=== PATIENT | female | born 1960 | race Caucasian/White ===

== ENCOUNTER 2022-04-12 09:02 | Inpatient (IN) | payer MEDICARE, OTHER ==
[2022-04-12] MEDS ORDERED: VANCOMYCIN 1 GM in D5W (PRE-DOCKED) 1,000 MG/250 ML IVPB ONE (09:49)
[2022-04-12] MEDS ORDERED: PIPERACILLIN/TAZOB 4.5 GM 4.5 GM in DEXTROSE 5%-WATER 100 ML IVPB ONE (09:49)
[2022-04-12] MEDS ORDERED: ACETAMINOPHEN 1000 MG/100 ML BAG IVPB ONE (10:20)
[2022-04-12] MEDS ORDERED: VANCOMYCIN/WATER FOR INJ (PEG) 1,000 MG/200 ML BAG IVPB ONE (10:22)
[2022-04-12] MEDS ORDERED: PIPERACILLIN/TAZOB 4.5 GM 4.5 GM/100 ML BAG IVPB ONE (10:22)
[2022-04-12] MEDS ORDERED: ACETAMINOPHEN INJECTION 100 ML IVPB ONE (10:56)
[2022-04-12 11:33] LABS: BASO % 0.3 % (0-2.0); EOS % 1.5 % (0-4.5); HEMATOCRIT 42.8 % (32.4-45.2); HEMOGLOBIN 14.3 GM/dL (10.7-15.3); LYMPH % 30.1 % (8-40); MCH 30.8 pg (25.7-33.7); MCHC 33.3 g/dl (32.0-36.0); MEAN CELL VOLUME 92.2 fl (80-96); MEAN PLT VOLUME 8.3 fl (7.5-11.1); MONO % 4.8 % (3.8-10.2); NEUT % 63.3 % (42.8-82.8); PLATELET COUNT 253 10^3/uL (134-434); RBC 4.64 M/mm3 (3.60-5.2); RDW 13.7 % (11.6-15.6); WHITE BLOOD COUNT 7.3 K/mm3 (4.0-10.0)
[2022-04-12 11:41] LABS: INR 0.94 (0.83-1.09); PROTHROMBIN TIME (PATIENT) 10.8 SEC (9.7-13.0)
[2022-04-12 11:43] LABS: ACTIVATED PTT 29.7 SECONDS (25.2-36.5)
[2022-04-12 11:54] LABS: ALBUMIN 3.5 g/dl (3.4-5.0); BLOOD UREA NITROGEN 14.9 mg/dL (7-18); MAGNESIUM 2.3 mg/dL (1.8-2.4)
[2022-04-12 11:57] LABS: CREATININE 0.5 mg/dL (0.55-1.3)
[2022-04-12 12:02] LABS: BILIRUBIN,TOTAL 0.2 mg/dL (0.2-1)
[2022-04-12] MEDS ORDERED: ACETAMINOPHEN 1000 MG/100 ML BAG IVPB PRN ×2 (14:10→17:36)
[2022-04-12] MEDS ORDERED: KETOROLAC TROMETHAMINE 15 MG/ML VIAL IVPUSH PRN (14:52)
[2022-04-12 15:48] VITALS: BMI 21.4
[2022-04-12] MEDS: PIPERACILLIN/TAZOB 3.375 GM 3.375 GM in DEXTROSE 5%-WATER - 50 ML IVPB SCH ×2 (16:14→21:57)
[2022-04-12] MEDS ORDERED: FLU VACC QS2022-23(6MOS UP)/PF 60 MCG/0.5 ML SYRINGE IM ONE (22:00)
[2022-04-12] MEDS ORDERED: PNEUMOC 20-VAL CONJ-DIP CRM/PF 0.5 ML SYRINGE IM ONE (22:00)
[2022-04-13] MEDS: PIPERACILLIN/TAZOB 3.375 GM 3.375 GM in DEXTROSE 5%-WATER - 50 ML IVPB SCH ×5 (03:02→17:10)
[2022-04-13 09:39] LABS: HEMATOCRIT 41.8 % (32.4-45.2); HEMOGLOBIN 13.5 GM/dL (10.7-15.3); MCH 29.9 pg (25.7-33.7); MCHC 32.4 g/dl (32.0-36.0); MEAN CELL VOLUME 92.1 fl (80-96); MEAN PLT VOLUME 8.5 fl (7.5-11.1); PLATELET COUNT 244 10^3/uL (134-434); RBC 4.53 M/mm3 (3.60-5.2); RDW 14.1 % (11.6-15.6); WHITE BLOOD COUNT 6.4 K/mm3 (4.0-10.0)
[2022-04-13] MEDS ORDERED: VANCOMYCIN 1 GM/200 ML PREMIX BAG (RESTRICTED TO ID ONLY) IVPB SCH (10:00)
[2022-04-13] MEDS: ENOXAPARIN NA (PORCINE) 40 MG/0.4 ML DISP.SYRIN SQ SCH (10:32)
[2022-04-13] MEDS: VANCOMYCIN 1 GM/200 ML PREMIX BAG (RESTRICTED TO ID ONLY) IVPB SCH ×3 (10:40→15:57)
[2022-04-13 10:45] LABS: CALCIUM 8.7 mg/dL (8.5-10.1)
[2022-04-13 10:47] LABS: BLOOD UREA NITROGEN 16.4 mg/dL (7-18); MAGNESIUM 2.2 mg/dL (1.8-2.4)
[2022-04-13 10:50] LABS: CREATININE 0.6 mg/dL (0.55-1.3); PHOSPHOROUS 3.2 mg/dL (2.5-4.9)
[2022-04-13] MEDS: KETOROLAC TROMETHAMINE 15 MG/ML VIAL IVPUSH PRN ×2 (15:13→23:40)
[2022-04-13] MEDS: LOSARTAN POTASSIUM 50 MG TABLET PO SCH (18:30)
[2022-04-14] MEDS: PIPERACILLIN/TAZOB 3.375 GM 3.375 GM in DEXTROSE 5%-WATER - 50 ML IVPB SCH ×3 (01:24→18:03)
[2022-04-14] MEDS ORDERED: PNEUMOC 20-VAL CONJ-DIP CRM/PF 0.5 ML SYRINGE IM ONE (07:44)
[2022-04-14] MEDS: LOSARTAN POTASSIUM 50 MG TABLET PO SCH (10:06)
[2022-04-14] MEDS: ENOXAPARIN NA (PORCINE) 40 MG/0.4 ML DISP.SYRIN SQ SCH (10:11)
[2022-04-14] MEDS: BACITRACIN 15 GM TUBE TOPICAL OINTMENT TP SCH (14:58)
[2022-04-14] MEDS: amLODIPine BESYLATE 5 MG TABLET (FP) PO SCH (14:58)
[2022-04-15] MEDS: PIPERACILLIN/TAZOB 3.375 GM 3.375 GM in DEXTROSE 5%-WATER - 50 ML IVPB SCH ×3 (01:52→17:37)
[2022-04-15] MEDS: LOSARTAN POTASSIUM 50 MG TABLET PO SCH (10:17)
[2022-04-15] MEDS: amLODIPine BESYLATE 5 MG TABLET (FP) PO SCH (10:18)
[2022-04-15] MEDS: ENOXAPARIN NA (PORCINE) 40 MG/0.4 ML DISP.SYRIN SQ SCH (10:22)
[2022-04-15] MEDS: BACITRACIN 15 GM TUBE TOPICAL OINTMENT TP SCH (14:01)
[2022-04-15] MEDS ORDERED: amLODIPine BESYLATE 5 MG TABLET (FP) PO ONE (14:55)
[2022-04-15] MEDS: metoPROLOL SUCCINATE 25 MG TAB.SR.24H (FP) PO SCH (15:18)
[2022-04-16] MEDS: PIPERACILLIN/TAZOB 3.375 GM 3.375 GM in DEXTROSE 5%-WATER - 50 ML IVPB SCH ×3 (01:43→19:42)
[2022-04-16] MEDS: metoPROLOL SUCCINATE 25 MG TAB.SR.24H (FP) PO SCH (09:51)
[2022-04-16] MEDS: ENOXAPARIN NA (PORCINE) 40 MG/0.4 ML DISP.SYRIN SQ SCH (09:51)
[2022-04-16] MEDS: amLODIPine BESYLATE 10 MG TABLET (FP) PO SCH (09:51)
[2022-04-16] MEDS: LOSARTAN POTASSIUM 50 MG TABLET PO SCH (09:51)
[2022-04-16] MEDS: BACITRACIN 15 GM TUBE TOPICAL OINTMENT TP SCH (09:53)
[2022-04-16 10:08] LABS: MCH 29.7 pg (25.7-33.7); MCHC 31.7 g/dl (32.0-36.0); MEAN CELL VOLUME 93.4 fl (80-96); MEAN PLT VOLUME 8.5 fl (7.5-11.1); PLATELET COUNT 246 10^3/uL (134-434); RBC 4.71 M/mm3 (3.60-5.2); RDW 14.4 % (11.6-15.6)
[2022-04-16 10:27] LABS: BLOOD UREA NITROGEN 18.1 mg/dL (7-18); MAGNESIUM 2.3 mg/dL (1.8-2.4)
[2022-04-16 10:30] LABS: CREATININE 0.5 mg/dL (0.55-1.3)
[2022-04-16 10:31] LABS: PHOSPHOROUS 3.5 mg/dL (2.5-4.9)
[2022-04-17] MEDS: PIPERACILLIN/TAZOB 3.375 GM 3.375 GM in DEXTROSE 5%-WATER - 50 ML IVPB SCH ×3 (01:36→18:08)
[2022-04-17] MEDS: metoPROLOL SUCCINATE 25 MG TAB.SR.24H (FP) PO SCH (10:13)
[2022-04-17] MEDS: LOSARTAN POTASSIUM 50 MG TABLET PO SCH (10:13)
[2022-04-17] MEDS: amLODIPine BESYLATE 10 MG TABLET (FP) PO SCH (10:13)
[2022-04-17] MEDS: ENOXAPARIN NA (PORCINE) 40 MG/0.4 ML DISP.SYRIN SQ SCH (10:14)
[2022-04-17] MEDS: BACITRACIN 15 GM TUBE TOPICAL OINTMENT TP SCH (10:15)
[2022-04-17 11:08] LABS: BASO % 0.8 % (0-2.0); EOS % 3.3 % (0-4.5); HEMATOCRIT 42.8 % (32.4-45.2); HEMOGLOBIN 14.1 GM/dL (10.7-15.3); LYMPH % 32.2 % (8-40); MCH 30.6 pg (25.7-33.7); MEAN CELL VOLUME 92.9 fl (80-96); MEAN PLT VOLUME 8.5 fl (7.5-11.1); MONO % 5.4 % (3.8-10.2); NEUT % 58.3 % (42.8-82.8); PLATELET COUNT 230 10^3/uL (134-434); RBC 4.61 M/mm3 (3.60-5.2); RDW 14.1 % (11.6-15.6); WHITE BLOOD COUNT 4.8 K/mm3 (4.0-10.0)
[2022-04-17 11:13] LABS: INR 1.02 (0.83-1.09); PROTHROMBIN TIME (PATIENT) 11.7 SEC (9.7-13.0)
[2022-04-17 11:16] LABS: ACTIVATED PTT 28.7 SECONDS (25.2-36.5)
[2022-04-17 11:29] LABS: ALBUMIN 3.3 g/dl (3.4-5.0); CALCIUM 8.9 mg/dL (8.5-10.1)
[2022-04-17 11:30] LABS: BLOOD UREA NITROGEN 19.4 mg/dL (7-18); MAGNESIUM 2.2 mg/dL (1.8-2.4)
[2022-04-17 11:33] LABS: CREATININE 0.6 mg/dL (0.55-1.3); PHOSPHOROUS 3.3 mg/dL (2.5-4.9)
[2022-04-17 11:34] LABS: BILIRUBIN,TOTAL 0.4 mg/dL (0.2-1); TOT PROT 6.7 g/dl (6.4-8.2)
[2022-04-17] MEDS: NICOTINE 21 MG/24 HOURS TOPICAL PATCH TD SCH (15:47)
[2022-04-18] MEDS: PIPERACILLIN/TAZOB 3.375 GM 3.375 GM in DEXTROSE 5%-WATER - 50 ML IVPB SCH ×3 (01:30→17:32)
[2022-04-18] MEDS: ACETAMINOPHEN 500 MG TABLET (FP) PO PRN ×2 (02:15→13:56)
[2022-04-18] MEDS: ENOXAPARIN NA (PORCINE) 40 MG/0.4 ML DISP.SYRIN SQ SCH (09:35)
[2022-04-18] MEDS: metoPROLOL SUCCINATE 25 MG TAB.SR.24H (FP) PO SCH (09:36)
[2022-04-18] MEDS: NICOTINE 21 MG/24 HOURS TOPICAL PATCH TD SCH (09:36)
[2022-04-18] MEDS: LOSARTAN POTASSIUM 50 MG TABLET PO SCH (09:36)
[2022-04-18] MEDS: amLODIPine BESYLATE 10 MG TABLET (FP) PO SCH (09:36)
[2022-04-18 10:19] LABS: BASO % 0.6 % (0-2.0); EOS % 3.3 % (0-4.5); HEMATOCRIT 43.4 % (32.4-45.2); LYMPH % 41.7 % (8-40); MCHC 32.3 g/dl (32.0-36.0); MEAN CELL VOLUME 92.9 fl (80-96); MEAN PLT VOLUME 8.5 fl (7.5-11.1); MONO % 5.1 % (3.8-10.2); NEUT % 49.3 % (42.8-82.8); PLATELET COUNT 266 10^3/uL (134-434); RBC 4.67 M/mm3 (3.60-5.2); WHITE BLOOD COUNT 3.9 K/mm3 (4.0-10.0)
[2022-04-18 11:25] LABS: ALBUMIN 3.3 g/dl (3.4-5.0); BLOOD UREA NITROGEN 15.6 mg/dL (7-18); CALCIUM 9.1 mg/dL (8.5-10.1); MAGNESIUM 2.3 mg/dL (1.8-2.4)
[2022-04-18 11:28] LABS: CREATININE 0.6 mg/dL (0.55-1.3); PHOSPHOROUS 3.6 mg/dL (2.5-4.9)
[2022-04-18 11:30] LABS: BILIRUBIN,TOTAL 0.4 mg/dL (0.2-1); TOT PROT 6.8 g/dl (6.4-8.2)
[2022-04-18] MEDS: BACITRACIN 15 GM TUBE TOPICAL OINTMENT TP SCH (11:45)
[2022-04-19] MEDS: PIPERACILLIN/TAZOB 3.375 GM 3.375 GM in DEXTROSE 5%-WATER - 50 ML IVPB SCH ×3 (02:08→18:20)
[2022-04-19] MEDS ORDERED: LIDOCAINE HCL 1%, 10 MG/ML (20ML VIAL) ONE (07:35)
[2022-04-19] MEDS ORDERED: HEPARIN NA (PORCINE) 5,000 UNITS/ML 1ML VIAL ONE ×3 (07:35→15:40)
[2022-04-19] MEDS: amLODIPine BESYLATE 10 MG TABLET (FP) PO SCH (09:55)
[2022-04-19] MEDS: LOSARTAN POTASSIUM 50 MG TABLET PO SCH (09:55)
[2022-04-19] MEDS: NICOTINE 21 MG/24 HOURS TOPICAL PATCH TD SCH (09:55)
[2022-04-19] MEDS: BACITRACIN 15 GM TUBE TOPICAL OINTMENT TP SCH (09:55)
[2022-04-19] MEDS: metoPROLOL SUCCINATE 25 MG TAB.SR.24H (FP) PO SCH (09:55)
[2022-04-19 11:05] LABS: HEMATOCRIT 42.7 % (32.4-45.2); HEMOGLOBIN 14.2 GM/dL (10.7-15.3); MCH 30.7 pg (25.7-33.7); MCHC 33.2 g/dl (32.0-36.0); MEAN CELL VOLUME 92.5 fl (80-96); MEAN PLT VOLUME 8.5 fl (7.5-11.1); PLATELET COUNT 222 10^3/uL (134-434); RBC 4.62 M/mm3 (3.60-5.2); WHITE BLOOD COUNT 5.2 K/mm3 (4.0-10.0)
[2022-04-19 11:08] LABS: INR 0.98 (0.83-1.09); PROTHROMBIN TIME (PATIENT) 11.3 SEC (9.7-13.0)
[2022-04-19 11:11] LABS: ACTIVATED PTT 29.8 SECONDS (25.2-36.5)
[2022-04-19 11:45] LABS: ALBUMIN 3.4 g/dl (3.4-5.0)
[2022-04-19 11:46] LABS: BLOOD UREA NITROGEN 17.1 mg/dL (7-18); MAGNESIUM 2.5 mg/dL (1.8-2.4)
[2022-04-19 11:48] LABS: CREATININE 0.5 mg/dL (0.55-1.3)
[2022-04-19 11:49] LABS: PHOSPHOROUS 3.3 mg/dL (2.5-4.9)
[2022-04-19 11:51] LABS: BILIRUBIN,TOTAL 0.4 mg/dL (0.2-1); TOT PROT 6.8 g/dl (6.4-8.2)
[2022-04-19 11:56] LABS: ANISOCYTOSIS 1+; MACROCYTOSIS 0
[2022-04-19] MEDS ORDERED: DEXMEDETOMIDINE HCL 200 MCG/2 ML IVPB ONE (14:52)
[2022-04-19] MEDS ORDERED: HEPARIN NA (PORCINE) 5,000 UNITS/ML 1ML VIAL SQ ONE (15:00)
[2022-04-19] MEDS ORDERED: PROPOFOL 20 ML ONE ×2 (15:08→15:42)
[2022-04-19] MEDS ORDERED: MIDAZOLAM HCL 2 MG/2 ML SINGLE DOSE VIAL ONE (15:15)
[2022-04-19] MEDS ORDERED: LACTATED RINGERS SOLUTION 1,000 ML IV SCH ×2 (15:15→16:28)
[2022-04-19] MEDS ORDERED: LIDOCAINE HCL 1%, 10 MG/ML (20ML VIAL) INF ONE ×2 (15:23)
[2022-04-19] MEDS ORDERED: ACETAMINOPHEN 500 MG TABLET (FP) PO PRN (16:28)
[2022-04-19] MEDS ORDERED: CLOPIDOGREL BISULFATE 75 MG TABLET (FP) ONE (16:58)
[2022-04-19] MEDS: CLOPIDOGREL BISULFATE 75 MG TABLET (FP) PO SCH (17:00)
[2022-04-20] MEDS: PIPERACILLIN/TAZOB 3.375 GM 3.375 GM in DEXTROSE 5%-WATER - 50 ML IVPB SCH ×3 (01:33→17:54)
[2022-04-20] MEDS ORDERED: SODIUM CHLORIDE 1,000 ML IV STA (09:53)
[2022-04-20] MEDS ORDERED: ENOXAPARIN NA (PORCINE) 40 MG/0.4 ML DISP.SYRIN SQ SCH (10:00)
[2022-04-20] MEDS ORDERED: amLODIPine BESYLATE 10 MG TABLET (FP) PO SCH (10:00)
[2022-04-20] MEDS ORDERED: LOSARTAN POTASSIUM 50 MG TABLET PO SCH (10:00)
[2022-04-20] MEDS ORDERED: metoPROLOL SUCCINATE 25 MG TAB.SR.24H (FP) PO SCH (10:00)
[2022-04-20] MEDS ORDERED: BACITRACIN 15 GM TUBE TOPICAL OINTMENT TP SCH (10:00)
[2022-04-20] MEDS ORDERED: NICOTINE 21 MG/24 HOURS TOPICAL PATCH TD SCH (10:00)
[2022-04-20] MEDS: CLOPIDOGREL BISULFATE 75 MG TABLET (FP) PO SCH (10:14)
[2022-04-20 10:33] LABS: BASO % 0.4 % (0-2.0); EOS % 1.8 % (0-4.5); HEMATOCRIT 40.4 % (32.4-45.2); HEMOGLOBIN 13.3 GM/dL (10.7-15.3); LYMPH % 33.4 % (8-40); MCH 30.1 pg (25.7-33.7); MCHC 32.8 g/dl (32.0-36.0); MEAN CELL VOLUME 91.7 fl (80-96); MEAN PLT VOLUME 8.4 fl (7.5-11.1); MONO % 6.3 % (3.8-10.2); NEUT % 58.1 % (42.8-82.8); PLATELET COUNT 283 10^3/uL (134-434); RDW 13.8 % (11.6-15.6); WHITE BLOOD COUNT 6.7 K/mm3 (4.0-10.0)
[2022-04-20 10:39] LABS: INR 1.01 (0.83-1.09); PROTHROMBIN TIME (PATIENT) 11.6 SEC (9.7-13.0)
[2022-04-20 10:55] LABS: BLOOD UREA NITROGEN 20.7 mg/dL (7-18); CALCIUM 8.9 mg/dL (8.5-10.1); MAGNESIUM 2.5 mg/dL (1.8-2.4)
[2022-04-20 10:57] LABS: ALBUMIN 3.2 g/dl (3.4-5.0); BLOOD UREA NITROGEN 20.3 mg/dL (7-18)
[2022-04-20 10:58] LABS: CREATININE 0.8 mg/dL (0.55-1.3); PHOSPHOROUS 3.9 mg/dL (2.5-4.9)
[2022-04-20 10:59] LABS: CREATININE 0.9 mg/dL (0.55-1.3)
[2022-04-20 11:01] LABS: TOT PROT 6.4 g/dl (6.4-8.2)
[2022-04-20 11:02] LABS: BILIRUBIN,TOTAL 0.3 mg/dL (0.2-1)
[2022-04-20] MEDS: LACTATED RINGERS SOLUTION 1,000 ML/1,000 ML INFUS.BAG IV SCH (14:06)
[2022-04-20 17:30] LABS: HEMATOCRIT 35.4 % (32.4-45.2); MCH 31.1 pg (25.7-33.7); MCHC 33.9 g/dl (32.0-36.0); MEAN CELL VOLUME 91.7 fl (80-96); MEAN PLT VOLUME 8.4 fl (7.5-11.1); PLATELET COUNT 206 10^3/uL (134-434); RBC 3.86 M/mm3 (3.60-5.2); RDW 13.4 % (11.6-15.6); WHITE BLOOD COUNT 7.3 K/mm3 (4.0-10.0)
[2022-04-21] MEDS: PIPERACILLIN/TAZOB 3.375 GM 3.375 GM in DEXTROSE 5%-WATER - 50 ML IVPB SCH ×3 (01:20→17:18)
[2022-04-21] MEDS: ACETAMINOPHEN 500 MG TABLET (FP) PO PRN ×2 (09:10→22:00)
[2022-04-21] MEDS: BACITRACIN 15 GM TUBE TOPICAL OINTMENT TP SCH (09:17)
[2022-04-21] MEDS: NICOTINE 21 MG/24 HOURS TOPICAL PATCH TD SCH (09:17)
[2022-04-21 10:27] LABS: BASO % 0.4 % (0-2.0); EOS % 2.6 % (0-4.5); HEMATOCRIT 33.5 % (32.4-45.2); HEMOGLOBIN 10.9 GM/dL (10.7-15.3); LYMPH % 32.3 % (8-40); MCH 30.1 pg (25.7-33.7); MCHC 32.7 g/dl (32.0-36.0); MEAN CELL VOLUME 92.2 fl (80-96); MEAN PLT VOLUME 8.5 fl (7.5-11.1); MONO % 6.5 % (3.8-10.2); NEUT % 58.2 % (42.8-82.8); PLATELET COUNT 197 10^3/uL (134-434); RBC 3.63 M/mm3 (3.60-5.2); RDW 13.8 % (11.6-15.6); WHITE BLOOD COUNT 6.4 K/mm3 (4.0-10.0)
[2022-04-21 10:38] LABS: CALCIUM 8.5 mg/dL (8.5-10.1)
[2022-04-21 10:39] LABS: ALBUMIN 2.9 g/dl (3.4-5.0); BLOOD UREA NITROGEN 16.9 mg/dL (7-18); MAGNESIUM 1.9 mg/dL (1.8-2.4)
[2022-04-21 10:42] LABS: PHOSPHOROUS 3.1 mg/dL (2.5-4.9)
[2022-04-21 10:43] LABS: CREATININE 0.5 mg/dL (0.55-1.3)
[2022-04-21 10:44] LABS: BILIRUBIN,TOTAL 0.4 mg/dL (0.2-1)
[2022-04-21] MEDS: LACTATED RINGERS SOLUTION 1,000 ML/1,000 ML INFUS.BAG IV SCH (12:14)
[2022-04-21 19:39] LABS: HEMATOCRIT 33.1 % (32.4-45.2); HEMOGLOBIN 10.8 GM/dL (10.7-15.3); MCH 30.4 pg (25.7-33.7); MCHC 32.5 g/dl (32.0-36.0); MEAN CELL VOLUME 93.4 fl (80-96); MEAN PLT VOLUME 8.7 fl (7.5-11.1); PLATELET COUNT 206 10^3/uL (134-434); RBC 3.54 M/mm3 (3.60-5.2); RDW 13.9 % (11.6-15.6); WHITE BLOOD COUNT 6.6 K/mm3 (4.0-10.0)
[2022-04-22] MEDS: PIPERACILLIN/TAZOB 3.375 GM 3.375 GM in DEXTROSE 5%-WATER - 50 ML IVPB SCH ×3 (01:41→18:28)
[2022-04-22] MEDS: LACTATED RINGERS SOLUTION 1,000 ML/1,000 ML INFUS.BAG IV SCH ×2 (06:50→09:27)
[2022-04-22 09:08] LABS: BASO % 0.5 % (0-2.0); EOS % 2.9 % (0-4.5); HEMATOCRIT 34.3 % (32.4-45.2); HEMOGLOBIN 11.2 GM/dL (10.7-15.3); LYMPH % 34.3 % (8-40); MCH 30.3 pg (25.7-33.7); MCHC 32.8 g/dl (32.0-36.0); MEAN CELL VOLUME 92.6 fl (80-96); MEAN PLT VOLUME 8.6 fl (7.5-11.1); MONO % 6.9 % (3.8-10.2); NEUT % 55.4 % (42.8-82.8); PLATELET COUNT 214 10^3/uL (134-434); RBC 3.71 M/mm3 (3.60-5.2); RDW 13.7 % (11.6-15.6); WHITE BLOOD COUNT 5.4 K/mm3 (4.0-10.0)
[2022-04-22 09:26] LABS: ALBUMIN 3.1 g/dl (3.4-5.0); BLOOD UREA NITROGEN 12.6 mg/dL (7-18)
[2022-04-22 09:27] LABS: CALCIUM 8.4 mg/dL (8.5-10.1)
[2022-04-22 09:29] LABS: CREATININE 0.5 mg/dL (0.55-1.3)
[2022-04-22 09:30] LABS: TOT PROT 6.3 g/dl (6.4-8.2)
[2022-04-22] MEDS: BACITRACIN 15 GM TUBE TOPICAL OINTMENT TP SCH (09:30)
[2022-04-22] MEDS: NICOTINE 21 MG/24 HOURS TOPICAL PATCH TD SCH (09:30)
[2022-04-22 09:31] LABS: BILIRUBIN,TOTAL 0.4 mg/dL (0.2-1)
[2022-04-22] MEDS: ACETAMINOPHEN 500 MG TABLET (FP) PO PRN (22:36)
[2022-04-23] MEDS: PIPERACILLIN/TAZOB 3.375 GM 3.375 GM in DEXTROSE 5%-WATER - 50 ML IVPB SCH ×3 (01:36→17:30)
[2022-04-23] MEDS: LACTATED RINGERS SOLUTION 1,000 ML/1,000 ML INFUS.BAG IV SCH ×2 (01:36→09:00)
[2022-04-23 08:57] LABS: BASO % 0.3 % (0-2.0); HEMOGLOBIN 11.2 GM/dL (10.7-15.3); LYMPH % 13.3 % (8-40); MCH 30.4 pg (25.7-33.7); MEAN CELL VOLUME 92.4 fl (80-96); MEAN PLT VOLUME 8.6 fl (7.5-11.1); MONO % 3.5 % (3.8-10.2); NEUT % 80.9 % (42.8-82.8); PLATELET COUNT 207 10^3/uL (134-434); RBC 3.68 M/mm3 (3.60-5.2); RDW 13.9 % (11.6-15.6); WHITE BLOOD COUNT 4.1 K/mm3 (4.0-10.0)
[2022-04-23 09:02] LABS: INR 1.05 (0.83-1.09); PROTHROMBIN TIME (PATIENT) 12.1 SEC (9.7-13.0)
[2022-04-23 09:22] LABS: CALCIUM 8.8 mg/dL (8.5-10.1)
[2022-04-23] MEDS: ACETAMINOPHEN 500 MG TABLET (FP) PO PRN ×2 (09:24→14:26)
[2022-04-23 09:26] LABS: CREATININE 0.5 mg/dL (0.55-1.3)
[2022-04-23] MEDS: NICOTINE 21 MG/24 HOURS TOPICAL PATCH TD SCH (09:39)
[2022-04-23] MEDS: BACITRACIN 15 GM TUBE TOPICAL OINTMENT TP SCH (09:45)
[2022-04-23] MEDS: metoPROLOL SUCCINATE 25 MG TAB.SR.24H (FP) PO SCH (09:45)
[2022-04-23] MEDS: LOSARTAN POTASSIUM 25 MG TABLET PO SCH (09:45)
[2022-04-23 15:44] LABS: EPI CELLS 6 /uL (0-25.1); HYALINE CASTS 0 /uL (0-3.1); PH,URINE 7.5 (5.0-8.0); URINE APPEARANCE CLEAR; URINE BACTERIA 3 /uL (0-1359); URINE BILIRUBIN NEGATIVE (NEGATIVE); URINE COLOR YELLOW; URINE GLUCOSE (UA) NEGATIVE (NEGATIVE); URINE KETONE NEGATIVE (NEGATIVE); URINE LEUK ESTERASE NEGATIVE (NEGATIVE); URINE NITRITE NEGATIVE (NEGATIVE); URINE PROTEIN NEGATIVE (NEGATIVE); URINE RBC 37 /uL (0-23.9); URINE WBC 2 /uL (0-25.8)
[2022-04-23] MEDS ORDERED: ENOXAPARIN NA (PORCINE) 40 MG/0.4 ML DISP.SYRIN SQ SCH (18:15)
[2022-04-23] MEDS ORDERED: REMDESIVIR 200 MG in SODIUM CHLORIDE 250 ML IVPB ONE (18:30)
[2022-04-23] MEDS: ACETAMINOPHEN 1000 MG/100 ML BAG IVPB PRN (20:08)
[2022-04-24] MEDS: PIPERACILLIN/TAZOB 3.375 GM 3.375 GM in DEXTROSE 5%-WATER - 50 ML IVPB SCH ×3 (01:34→17:10)
[2022-04-24] MEDS: LACTATED RINGERS SOLUTION 1,000 ML/1,000 ML INFUS.BAG IV SCH ×2 (02:23→09:00)
[2022-04-24] MEDS: ACETAMINOPHEN 1000 MG/100 ML BAG IVPB PRN ×2 (05:53→13:27)
[2022-04-24 08:33] LABS: BASO % 0.7 % (0-2.0); EOS % 0.4 % (0-4.5); HEMATOCRIT 33.9 % (32.4-45.2); HEMOGLOBIN 11.2 GM/dL (10.7-15.3); LYMPH % 24.7 % (8-40); MCH 30.3 pg (25.7-33.7); MEAN CELL VOLUME 91.7 fl (80-96); MEAN PLT VOLUME 8.8 fl (7.5-11.1); MONO % 11.7 % (3.8-10.2); NEUT % 62.5 % (42.8-82.8); PLATELET COUNT 187 10^3/uL (134-434); RDW 13.4 % (11.6-15.6); WHITE BLOOD COUNT 2.9 K/mm3 (4.0-10.0)
[2022-04-24 08:56] LABS: CALCIUM 8.5 mg/dL (8.5-10.1)
[2022-04-24 08:57] LABS: ALBUMIN 3.2 g/dl (3.4-5.0); BLOOD UREA NITROGEN 12.2 mg/dL (7-18); MAGNESIUM 2.1 mg/dL (1.8-2.4)
[2022-04-24 09:00] LABS: CREATININE 0.6 mg/dL (0.55-1.3); PHOSPHOROUS 3.6 mg/dL (2.5-4.9)
[2022-04-24 09:01] LABS: BILIRUBIN,TOTAL 0.4 mg/dL (0.2-1); TOT PROT 6.9 g/dl (6.4-8.2)
[2022-04-24] MEDS: metoPROLOL SUCCINATE 25 MG TAB.SR.24H (FP) PO SCH (09:31)
[2022-04-24] MEDS: LOSARTAN POTASSIUM 25 MG TABLET PO SCH (09:31)
[2022-04-24] MEDS: PANTOPRAZOLE SODIUM 40 MG VIAL IVPUSH SCH (09:32)
[2022-04-24] MEDS: BACITRACIN 15 GM TUBE TOPICAL OINTMENT TP SCH (09:32)
[2022-04-24] MEDS: NICOTINE 21 MG/24 HOURS TOPICAL PATCH TD SCH (09:32)
[2022-04-24] MEDS ORDERED: ACETAMINOPHEN 1000 MG/100 ML BAG IVPB ONE (22:41)
[2022-04-25] MEDS: PIPERACILLIN/TAZOB 3.375 GM 3.375 GM in DEXTROSE 5%-WATER - 50 ML IVPB SCH ×3 (01:06→17:37)
[2022-04-25 07:17] LABS: BASO % 0.9 % (0-2.0); EOS % 0.2 % (0-4.5); HEMATOCRIT 35.1 % (32.4-45.2); HEMOGLOBIN 11.7 GM/dL (10.7-15.3); MCH 30.3 pg (25.7-33.7); MCHC 33.3 g/dl (32.0-36.0); MEAN CELL VOLUME 90.9 fl (80-96); MEAN PLT VOLUME 8.8 fl (7.5-11.1); MONO % 8.1 % (3.8-10.2); NEUT % 56.8 % (42.8-82.8); PLATELET COUNT 159 10^3/uL (134-434); RBC 3.86 M/mm3 (3.60-5.2); RDW 13.4 % (11.6-15.6); WHITE BLOOD COUNT 3.1 K/mm3 (4.0-10.0)
[2022-04-25 07:24] LABS: INR 1.19 (0.83-1.09); PROTHROMBIN TIME (PATIENT) 13.7 SEC (9.7-13.0)
[2022-04-25 07:40] LABS: CALCIUM 8.6 mg/dL (8.5-10.1)
[2022-04-25 07:41] LABS: ALBUMIN 3.1 g/dl (3.4-5.0); BLOOD UREA NITROGEN 14.6 mg/dL (7-18); MAGNESIUM 2.1 mg/dL (1.8-2.4)
[2022-04-25 07:44] LABS: CREATININE 0.6 mg/dL (0.55-1.3); PHOSPHOROUS 3.8 mg/dL (2.5-4.9)
[2022-04-25 07:45] LABS: BILIRUBIN,TOTAL 0.3 mg/dL (0.2-1)
[2022-04-25 07:46] LABS: TOT PROT 6.6 g/dl (6.4-8.2)
[2022-04-25] MEDS: metoPROLOL SUCCINATE 25 MG TAB.SR.24H (FP) PO SCH (09:00)
[2022-04-25] MEDS: PANTOPRAZOLE SODIUM 40 MG VIAL IVPUSH SCH (09:00)
[2022-04-25] MEDS: LOSARTAN POTASSIUM 25 MG TABLET PO SCH (09:00)
[2022-04-25] MEDS: NICOTINE 21 MG/24 HOURS TOPICAL PATCH TD SCH (09:00)
[2022-04-25] MEDS: BACITRACIN 15 GM TUBE TOPICAL OINTMENT TP SCH (09:00)
[2022-04-25] MEDS: ACETAMINOPHEN 1000 MG/100 ML BAG IVPB PRN (16:54)
[2022-04-26] MEDS: ACETAMINOPHEN 1000 MG/100 ML BAG IVPB PRN (01:16)
[2022-04-26] MEDS: PIPERACILLIN/TAZOB 3.375 GM 3.375 GM in DEXTROSE 5%-WATER - 50 ML IVPB SCH ×3 (02:22→17:18)
[2022-04-26] MEDS ORDERED: BUPIVACAINE HCL/PF 0.5% (5MG/ML) 10 ML VIAL ONE (07:14)
[2022-04-26] MEDS ORDERED: DEXAMETHASONE SOD PHOSPHATE 10 MG/1 ML VIAL ONE (07:14)
[2022-04-26] MEDS ORDERED: LIDOCAINE HCL 1%, 10 MG/ML (20ML VIAL) ONE (07:14)
[2022-04-26] MEDS ORDERED: MIDAZOLAM HCL 2 MG/2 ML SINGLE DOSE VIAL ONE (07:17)
[2022-04-26] MEDS ORDERED: PROPOFOL 40 ML ONE (07:17)
[2022-04-26] MEDS ORDERED: LIDOCAINE HCL/PF 2% SDV 5ML VIAL ONE ×2 (07:17)
[2022-04-26] MEDS ORDERED: VANCOMYCIN 1,000 MG VIAL (RESTRICTED TO ID ONLY) ONE (07:28)
[2022-04-26] MEDS ORDERED: ONDANSETRON 4 MG/2 ML VIAL IVPUSH PRN (07:44)
[2022-04-26] MEDS ORDERED: LACTATED RINGERS SOLUTION 1,000 ML IV SCH (07:45)
[2022-04-26 08:01] LABS: BASO % 1.3 % (0-2.0); EOS % 0.5 % (0-4.5); HEMATOCRIT 36.2 % (32.4-45.2); HEMOGLOBIN 11.9 GM/dL (10.7-15.3); LYMPH % 45.5 % (8-40); MCHC 32.8 g/dl (32.0-36.0); MEAN CELL VOLUME 91.6 fl (80-96); MEAN PLT VOLUME 8.9 fl (7.5-11.1); MONO % 8.3 % (3.8-10.2); NEUT % 44.4 % (42.8-82.8); PLATELET COUNT 184 10^3/uL (134-434); RBC 3.95 M/mm3 (3.60-5.2); RDW 13.6 % (11.6-15.6); WHITE BLOOD COUNT 2.6 K/mm3 (4.0-10.0)
[2022-04-26] MEDS ORDERED: BUPIVACAINE HCL/PF 0.5% (5MG/ML) 10 ML VIAL IJ ONE (08:19)
[2022-04-26] MEDS ORDERED: LIDOCAINE HCL 1%, 10 MG/ML (20ML VIAL) INF ONE (08:19)
[2022-04-26 08:28] LABS: CALCIUM 8.5 mg/dL (8.5-10.1)
[2022-04-26 08:29] LABS: ALBUMIN 3.2 g/dl (3.4-5.0); MAGNESIUM 1.9 mg/dL (1.8-2.4)
[2022-04-26 08:32] LABS: CREATININE 0.8 mg/dL (0.55-1.3); PHOSPHOROUS 3.7 mg/dL (2.5-4.9); TOT PROT 6.9 g/dl (6.4-8.2)
[2022-04-26 08:34] LABS: BILIRUBIN,TOTAL 0.4 mg/dL (0.2-1)
[2022-04-26] MEDS: NICOTINE 21 MG/24 HOURS TOPICAL PATCH TD SCH (10:55)
[2022-04-26] MEDS: PANTOPRAZOLE SODIUM 40 MG VIAL IVPUSH SCH (10:56)
[2022-04-26] MEDS: LOSARTAN POTASSIUM 25 MG TABLET PO SCH (10:58)
[2022-04-26] MEDS: metoPROLOL SUCCINATE 25 MG TAB.SR.24H (FP) PO SCH (10:58)
[2022-04-26] MEDS: BACITRACIN 15 GM TUBE TOPICAL OINTMENT TP SCH (10:59)
[2022-04-26] MEDS ORDERED: ACETAMINOPHEN 1000 MG/100 ML BAG IVPB PRN (14:55)
[2022-04-26] MEDS: LACTATED RINGERS SOLUTION 1,000 ML IV SCH ×2 (15:16→22:21)
[2022-04-27] MEDS: PIPERACILLIN/TAZOB 3.375 GM 3.375 GM in DEXTROSE 5%-WATER - 50 ML IVPB SCH ×3 (01:37→17:07)
[2022-04-27] MEDS: LOSARTAN POTASSIUM 25 MG TABLET PO SCH (09:18)
[2022-04-27] MEDS: NICOTINE 21 MG/24 HOURS TOPICAL PATCH TD SCH (09:18)
[2022-04-27] MEDS: BACITRACIN 15 GM TUBE TOPICAL OINTMENT TP SCH (09:18)
[2022-04-27] MEDS: PANTOPRAZOLE SODIUM 40 MG VIAL IVPUSH SCH (09:18)
[2022-04-27] MEDS: metoPROLOL SUCCINATE 25 MG TAB.SR.24H (FP) PO SCH (09:18)
[2022-04-27 10:36] LABS: HEMATOCRIT 30.2 % (32.4-45.2); HEMOGLOBIN 10.2 GM/dL (10.7-15.3); MCH 30.4 pg (25.7-33.7); MCHC 33.9 g/dl (32.0-36.0); MEAN CELL VOLUME 89.8 fl (80-96); MEAN PLT VOLUME 8.4 fl (7.5-11.1); PLATELET COUNT 120 10^3/uL (134-434); RBC 3.37 M/mm3 (3.60-5.2); RDW 13.2 % (11.6-15.6)
[2022-04-27 10:52] LABS: WHITE BLOOD COUNT 1.8 K/mm3 (4.0-10.0)
[2022-04-27 10:55] LABS: ALBUMIN 2.8 g/dl (3.4-5.0); BLOOD UREA NITROGEN 13.4 mg/dL (7-18)
[2022-04-27 10:59] LABS: BILIRUBIN,TOTAL 0.4 mg/dL (0.2-1); CREATININE 0.5 mg/dL (0.55-1.3); PHOSPHOROUS 1.8 mg/dL (2.5-4.9)
[2022-04-27] MEDS ORDERED: POTASSIUM PHOSPHATE 30 MM in SODIUM CHLORIDE 500 ML IVPB ONE (12:30)
[2022-04-27] MEDS: LACTATED RINGERS SOLUTION 1,000 ML IV SCH ×2 (17:25→23:39)
[2022-04-27] MEDS: ACETAMINOPHEN 325 MG TABLET (FP) PO PRN (23:40)
[2022-04-28] MEDS: PIPERACILLIN/TAZOB 3.375 GM 3.375 GM in DEXTROSE 5%-WATER - 50 ML IVPB SCH ×3 (01:30→18:15)
[2022-04-28 09:48] LABS: HEMATOCRIT 31.1 % (32.4-45.2); HEMOGLOBIN 10.4 GM/dL (10.7-15.3); MCH 30.1 pg (25.7-33.7); MCHC 33.5 g/dl (32.0-36.0); MEAN CELL VOLUME 90.1 fl (80-96); MEAN PLT VOLUME 8.8 fl (7.5-11.1); PLATELET COUNT 74 10^3/uL (134-434); RBC 3.45 M/mm3 (3.60-5.2); RDW 13.2 % (11.6-15.6)
[2022-04-28 09:53] LABS: WHITE BLOOD COUNT 1.3 K/mm3 (4.0-10.0)
[2022-04-28 10:11] LABS: ALBUMIN 2.8 g/dl (3.4-5.0); BLOOD UREA NITROGEN 9.4 mg/dL (7-18); CALCIUM 8.3 mg/dL (8.5-10.1); MAGNESIUM 1.9 mg/dL (1.8-2.4)
[2022-04-28 10:15] LABS: CREATININE 0.5 mg/dL (0.55-1.3); PHOSPHOROUS 2.1 mg/dL (2.5-4.9)
[2022-04-28 10:17] LABS: BILIRUBIN,TOTAL 0.5 mg/dL (0.2-1); TOT PROT 6.2 g/dl (6.4-8.2)
[2022-04-28] MEDS: NICOTINE 21 MG/24 HOURS TOPICAL PATCH TD SCH (11:31)
[2022-04-28] MEDS: PANTOPRAZOLE SODIUM 40 MG VIAL IVPUSH SCH (11:31)
[2022-04-28] MEDS: metoPROLOL SUCCINATE 25 MG TAB.SR.24H (FP) PO SCH (11:31)
[2022-04-28] MEDS: BACITRACIN 15 GM TUBE TOPICAL OINTMENT TP SCH (11:32)
[2022-04-28] MEDS: LOSARTAN POTASSIUM 25 MG TABLET PO SCH (11:32)
[2022-04-28] MEDS: LACTATED RINGERS SOLUTION 1,000 ML IV SCH (18:15)
[2022-04-28] MEDS: ACETAMINOPHEN 325 MG TABLET (FP) PO PRN (21:47)
[2022-04-29] MEDS: PIPERACILLIN/TAZOB 3.375 GM 3.375 GM in DEXTROSE 5%-WATER - 50 ML IVPB SCH ×2 (02:25→10:27)
[2022-04-29] MEDS: ACETAMINOPHEN 325 MG TABLET (FP) PO PRN ×3 (05:53→21:32)
[2022-04-29 10:16] LABS: ALBUMIN 2.8 g/dl (3.4-5.0); BLOOD UREA NITROGEN 12.8 mg/dL (7-18); CALCIUM 8.2 mg/dL (8.5-10.1)
[2022-04-29 10:19] LABS: CREATININE 0.6 mg/dL (0.55-1.3)
[2022-04-29] MEDS: BACITRACIN 15 GM TUBE TOPICAL OINTMENT TP SCH (10:19)
[2022-04-29] MEDS: NICOTINE 21 MG/24 HOURS TOPICAL PATCH TD SCH (10:20)
[2022-04-29] MEDS: PANTOPRAZOLE SODIUM 40 MG VIAL IVPUSH SCH (10:20)
[2022-04-29] MEDS: LOSARTAN POTASSIUM 25 MG TABLET PO SCH (10:20)
[2022-04-29] MEDS: metoPROLOL SUCCINATE 25 MG TAB.SR.24H (FP) PO SCH (10:20)
[2022-04-29] MEDS: NAPH,MB-DB/K PH,MBDB POWDER PACKET PO SCH ×2 (10:20→21:31)
[2022-04-29 10:21] LABS: BILIRUBIN,TOTAL 0.5 mg/dL (0.2-1); TOT PROT 6.3 g/dl (6.4-8.2)
[2022-04-29 14:45] LABS: HEMATOCRIT 32.2 % (32.4-45.2); MCH 30.8 pg (25.7-33.7); MCHC 34.1 g/dl (32.0-36.0); MEAN CELL VOLUME 90.3 fl (80-96); MEAN PLT VOLUME 9.8 fl (7.5-11.1); PLATELET COUNT 57 10^3/uL (134-434); RBC 3.57 M/mm3 (3.60-5.2); RDW 13.6 % (11.6-15.6)
[2022-04-29 14:48] LABS: WHITE BLOOD COUNT 1.2 K/mm3 (4.0-10.0)
[2022-04-29 15:13] LABS: ANISOCYTOSIS 0; MACROCYTOSIS 0; PLATELET ESTIMATE DECREASED
[2022-04-29] MEDS: LACTATED RINGERS SOLUTION 1,000 ML IV SCH (15:45)
[2022-04-29 17:02] LABS: INR 1.11 (0.83-1.09); PROTHROMBIN TIME (PATIENT) 12.8 SEC (9.7-13.0)
[2022-04-29] MEDS ORDERED: CEFEPIME 1 GM in DEXTROSE 5%-WATER - 100 ML IVPB SCH (19:30)
[2022-04-29] MEDS: CEFEPIME 1 GM in DEXTROSE 5%-WATER 100 ML IVPB SCH (21:30)
[2022-04-30] MEDS: CEFEPIME 1 GM in DEXTROSE 5%-WATER 100 ML IVPB SCH ×3 (01:59→17:43)
[2022-04-30 06:32] LABS: EPI CELLS 4 /uL (0-25.1); HYALINE CASTS 0 /uL (0-3.1); PH,URINE 5.5 (5.0-8.0); URINE APPEARANCE CLEAR; URINE BACTERIA 0 /uL (0-1359); URINE BILIRUBIN NEGATIVE (NEGATIVE); URINE COLOR YELLOW; URINE GLUCOSE (UA) NEGATIVE (NEGATIVE); URINE KETONE NEGATIVE (NEGATIVE); URINE LEUK ESTERASE NEGATIVE (NEGATIVE); URINE NITRITE NEGATIVE (NEGATIVE); URINE PROTEIN 1+ (NEGATIVE); URINE RBC 10 /uL (0-23.9); URINE UROBILINOGEN 0.2 mg/dL (0.2-1.0); URINE WBC 3 /uL (0-25.8)
[2022-04-30] MEDS: NICOTINE 21 MG/24 HOURS TOPICAL PATCH TD SCH (09:49)
[2022-04-30] MEDS: NAPH,MB-DB/K PH,MBDB POWDER PACKET PO SCH (09:49)
[2022-04-30] MEDS: metoPROLOL SUCCINATE 25 MG TAB.SR.24H (FP) PO SCH (09:50)
[2022-04-30] MEDS: LOSARTAN POTASSIUM 25 MG TABLET PO SCH (09:50)
[2022-04-30] MEDS: PANTOPRAZOLE SODIUM 40 MG VIAL IVPUSH SCH (09:50)
[2022-04-30] MEDS: BACITRACIN 15 GM TUBE TOPICAL OINTMENT TP SCH (09:58)
[2022-04-30 11:37] LABS: BASO % 0.4 % (0-2.0); EOS % 1.4 % (0-4.5); HEMOGLOBIN 10.9 GM/dL (10.7-15.3); INR 1.07 (0.83-1.09); LYMPH % 45.6 % (8-40); MCH 30.8 pg (25.7-33.7); MCHC 34.2 g/dl (32.0-36.0); MEAN CELL VOLUME 90.1 fl (80-96); MEAN PLT VOLUME 9.8 fl (7.5-11.1); MONO % 6.4 % (3.8-10.2); NEUT % 46.2 % (42.8-82.8); PLATELET COUNT 106 10^3/uL (134-434); PROTHROMBIN TIME (PATIENT) 12.3 SEC (9.7-13.0); RBC 3.55 M/mm3 (3.60-5.2); RDW 13.7 % (11.6-15.6)
[2022-04-30 11:48] LABS: CALCIUM 8.2 mg/dL (8.5-10.1)
[2022-04-30 11:49] LABS: ALBUMIN 2.7 g/dl (3.4-5.0); BLOOD UREA NITROGEN 15.9 mg/dL (7-18); MAGNESIUM 2.2 mg/dL (1.8-2.4)
[2022-04-30 11:52] LABS: PHOSPHOROUS 2.5 mg/dL (2.5-4.9)
[2022-04-30 11:53] LABS: BILIRUBIN,TOTAL 0.4 mg/dL (0.2-1); CREATININE 0.5 mg/dL (0.55-1.3)
[2022-04-30] MEDS: LACTATED RINGERS SOLUTION 1,000 ML IV SCH (14:31)
[2022-04-30] MEDS ORDERED: MEROPENEM 1 GM in DEXTROSE 5%-WATER 100 ML IVPB SCH (18:00)
[2022-04-30] MEDS ORDERED: NAPH,MB-DB/K PH,MBDB POWDER PACKET PO SCH (18:54)
[2022-05-01] MEDS: CEFEPIME 1 GM in DEXTROSE 5%-WATER 100 ML IVPB SCH ×2 (02:57→09:10)
[2022-05-01] MEDS: NICOTINE 21 MG/24 HOURS TOPICAL PATCH TD SCH (09:09)
[2022-05-01] MEDS: metoPROLOL SUCCINATE 25 MG TAB.SR.24H (FP) PO SCH (09:09)
[2022-05-01] MEDS: LOSARTAN POTASSIUM 25 MG TABLET PO SCH (09:09)
[2022-05-01] MEDS: BACITRACIN 15 GM TUBE TOPICAL OINTMENT TP SCH (09:11)
[2022-05-01 10:20] LABS: HEMATOCRIT 34.5 % (32.4-45.2); HEMOGLOBIN 11.3 GM/dL (10.7-15.3); MCH 29.5 pg (25.7-33.7); MCHC 32.7 g/dl (32.0-36.0); MEAN CELL VOLUME 90.4 fl (80-96); MEAN PLT VOLUME 9.5 fl (7.5-11.1); PLATELET COUNT 194 10^3/uL (134-434); RBC 3.81 M/mm3 (3.60-5.2); RDW 14.1 % (11.6-15.6); WHITE BLOOD COUNT 2.4 K/mm3 (4.0-10.0)
[2022-05-01 10:56] LABS: ALBUMIN 2.9 g/dl (3.4-5.0); BLOOD UREA NITROGEN 12.1 mg/dL (7-18); CALCIUM 8.4 mg/dL (8.5-10.1); MAGNESIUM 2.1 mg/dL (1.8-2.4)
[2022-05-01 10:59] LABS: CREATININE 0.5 mg/dL (0.55-1.3); PHOSPHOROUS 2.7 mg/dL (2.5-4.9)
[2022-05-01 11:01] LABS: BILIRUBIN,TOTAL 0.4 mg/dL (0.2-1); TOT PROT 6.3 g/dl (6.4-8.2)
[2022-05-01] MEDS: LACTATED RINGERS SOLUTION 1,000 ML IV SCH (15:00)
[2022-05-01] MEDS: ACETAMINOPHEN 325 MG TABLET (FP) PO PRN (17:17)
[2022-05-02] MEDS: NICOTINE 21 MG/24 HOURS TOPICAL PATCH TD SCH (10:12)
[2022-05-02] MEDS: BACITRACIN 15 GM TUBE TOPICAL OINTMENT TP SCH (10:13)
[2022-05-02] MEDS: metoPROLOL SUCCINATE 25 MG TAB.SR.24H (FP) PO SCH (10:13)
[2022-05-02] MEDS: LOSARTAN POTASSIUM 25 MG TABLET PO SCH (10:13)
[2022-05-02 10:21] LABS: HEMATOCRIT 33.1 % (32.4-45.2); HEMOGLOBIN 11.2 GM/dL (10.7-15.3); MCH 30.2 pg (25.7-33.7); MCHC 33.9 g/dl (32.0-36.0); MEAN CELL VOLUME 89.2 fl (80-96); MEAN PLT VOLUME 8.5 fl (7.5-11.1); PLATELET COUNT 222 10^3/uL (134-434); RBC 3.71 M/mm3 (3.60-5.2); RDW 13.6 % (11.6-15.6); WHITE BLOOD COUNT 2.6 K/mm3 (4.0-10.0)
[2022-05-02 10:39] LABS: CALCIUM 8.5 mg/dL (8.5-10.1)
[2022-05-02 10:40] LABS: ALBUMIN 2.9 g/dl (3.4-5.0); BLOOD UREA NITROGEN 10.6 mg/dL (7-18); MAGNESIUM 2.2 mg/dL (1.8-2.4)
[2022-05-02 10:43] LABS: CREATININE 0.4 mg/dL (0.55-1.3); PHOSPHOROUS 2.4 mg/dL (2.5-4.9)
[2022-05-02 10:44] LABS: BILIRUBIN,TOTAL 0.5 mg/dL (0.2-1); TOT PROT 6.3 g/dl (6.4-8.2)
[2022-05-02 11:34] VITALS: BP 132/59; PULSE 75; RESP 18; TEMP 98
[2022-05-02] MEDS ORDERED: NAPH,MB-DB/K PH,MBDB POWDER PACKET PO ONE (14:06)
== END 2022-05-02 15:08 | disposition left against medical advice (07) | DRG 853 ==
LOC: JER 09:02 → JERBED 09:49 → J5S 14:49 → J4S 04-20 20:31 → J6S 04-26 13:00
PROVIDERS: ADMIT Internal Medicine; ATTEND Internal Medicine
PROC: 047K341 Dilation of Right Femoral Artery with Drug-eluting Intraluminal Device, using Drug-Coated Balloon, Percutaneous Approach (ICD-10-PCS; 2022-04-19)
PROC: B41DZZZ Fluoroscopy of Aorta and Bilateral Lower Extremity Arteries (ICD-10-PCS; 2022-04-19)
PROC: XW033E5 Introduction of Remdesivir Anti-infective into Peripheral Vein, Percutaneous Approach, New Technology Group 5 (ICD-10-PCS; 2022-04-23)
PROC: 0Y6V0Z0 Detachment at Right 4th Toe, Complete, Open Approach (ICD-10-PCS; principal; 2022-04-26 07:30)
DX: A41.9 Sepsis, unspecified organism (principal); J96.01 Acute respiratory failure with hypoxia; U07.1 COVID-19; K66.1 Hemoperitoneum; I96 Gangrene, not elsewhere classified; D61.818 Other pancytopenia; M86.671 Other chronic osteomyelitis, right ankle and foot; M86.8X7 Other osteomyelitis, ankle and foot; E84.9 Cystic fibrosis, unspecified; L97.519 Non-pressure chronic ulcer of other part of right foot with unspecified severity; I73.9 Peripheral vascular disease, unspecified; M79.676 Pain in unspecified toe(s); F17.210 Nicotine dependence, cigarettes, uncomplicated; L08.9 Local infection of the skin and subcutaneous tissue, unspecified; R94.31 Abnormal electrocardiogram [ECG] [EKG]; M06.9 Rheumatoid arthritis, unspecified; T81.89XA Other complications of procedures, not elsewhere classified, initial encounter; Y83.9 Surgical procedure, unspecified as the cause of abnormal reaction of the patient, or of later complication, without mention of misadventure at the time of the procedure; Y92.89 Other specified places as the place of occurrence of the external cause; I11.9 Hypertensive heart disease without heart failure; I95.9 Hypotension, unspecified; I77.1 Stricture of artery; K44.9 Diaphragmatic hernia without obstruction or gangrene
CPT/HCPCS: 36415; 71045-TC-FY; 71046-TC-FY; 73630-TC-RT-FY; 73718-TC-RT; 74176-TC; 74177-TC; 76000-TC-FY; 80048; 80053; 80061; 81003; 82272; 82728; 83036; 83605; 83735; 84100; 85025; 85027; 85610; 85651; 85730; 86140; 86850; 86900; 86901; 87040; 87070; 87086; 87186; 87205; 88305-TC; 88311-TC; 90677; 93005; 93010; 93306-TC; 93926-TC; 94760; 97116-GP; 97161-GP; 99285-25; C9399; C9803-CS; G0008; J1100; J1644; Q2036; Q9967; U0003; U0005

== ENCOUNTER 2022-05-17 04:13 | Day surgery (SDC) | payer MEDICARE ==
[2022-05-14 13:25] VITALS: BMI 24.9
[~2022-05-17 04:13] MED LIST: HEPARIN NA (PORCINE) 5,000 UNITS/ML 1ML VIAL IV ONE; INSULIN REGULAR HUMAN 100 UNITS/ML *VIAL SQ ONE; IOHEXOL 300 MG/ML INFUS..BTL IV ONE; LIDOCAINE HCL 1%, 10 MG/ML (20ML VIAL) NR ONE; ceFAZolin SODIUM 1 GM VIAL IVPB ONE
[2022-05-17] MEDS ORDERED: LIDOCAINE HCL 1%, 10 MG/ML (20ML VIAL) ONE (12:12)
[2022-05-17] MEDS ORDERED: HEPARIN NA (PORCINE) 5,000 UNITS/ML 1ML VIAL ONE (12:13)
[2022-05-17] MEDS ORDERED: LIDOCAINE HCL/PF 2% SDV 5ML VIAL ONE (12:44)
[2022-05-17] MEDS ORDERED: PROPOFOL 20 ML ONE ×2 (12:44→13:23)
[2022-05-17] MEDS ORDERED: ceFAZolin SODIUM 1 GM VIAL ONE (12:56)
[2022-05-17] MEDS ORDERED: ceFAZolin SODIUM 1 GM VIAL IVPB ONE (12:56)
[2022-05-17] MEDS ORDERED: LIDOCAINE HCL 1%, 10 MG/ML (20ML VIAL) NR ONE (13:01)
[2022-05-17] MEDS ORDERED: IOHEXOL 300 MG/ML INFUS..BTL IV ONE (13:15)
[2022-05-17] MEDS ORDERED: HEPARIN NA (PORCINE) 5,000 UNITS/ML 1ML VIAL IV ONE (13:15)
[2022-05-17] MEDS ORDERED: ONDANSETRON 4 MG/2 ML VIAL IVPUSH PRN (14:08)
[2022-05-17] MEDS ORDERED: PROMETHAZINE HCL 25 MG/1 ML VIAL IVPUSH PRN (14:08)
[2022-05-17] MEDS ORDERED: oxyCODONE HCL 5 MG TABLET PO PRN (14:08)
[2022-05-17] MEDS ORDERED: ACETAMINOPHEN 1000 MG/100 ML BAG IVPB PRN (14:09)
[2022-05-17] MEDS ORDERED: LACTATED RINGERS SOLUTION 1,000 ML IV SCH (14:15)
[2022-05-17] MEDS ORDERED: CLOPIDOGREL BISULFATE 75 MG TABLET (FP) PO ONE (14:16)
[2022-05-17 14:36] VITALS: RESP 16
[2022-05-17] MEDS ORDERED: CLOPIDOGREL BISULFATE 75 MG TABLET (FP) ONE (14:37)
[2022-05-17 17:32] VITALS: BP 167/60; PULSE 67; TEMP 98
== END 2022-05-17 15:45 | disposition home or self-care (01) ==
LOC: JASU-SURG 04:13
PROVIDERS: ATTEND Surgery Vascular Surgery
PROC: 047K3DZ Dilation of Right Femoral Artery with Intraluminal Device, Percutaneous Approach (ICD-10-PCS; principal; 2022-05-17 12:30)
DX: I70.211 Atherosclerosis of native arteries of extremities with intermittent claudication, right leg (principal)
CPT/HCPCS: 37227; C1877; 76000-TC-FY; 94760; C1725; C1760; C2623; J1644

== ENCOUNTER 2024-08-20 03:46 | Day surgery (SDC) | payer MEDICARE, OTHER ==
[2024-08-17 12:31] VITALS: BMI 21.6
[2024-08-20] MEDS ORDERED: HEPARIN NA (PORCINE) 5,000 UNITS/ML 1ML VIAL ONE ×2 (07:23→08:30)
[2024-08-20] MEDS ORDERED: LIDOCAINE HCL 1%, 10 MG/ML (20ML VIAL) ONE (07:23)
[2024-08-20] MEDS ORDERED: MIDAZOLAM HCL 2 MG/2 ML SINGLE DOSE VIAL ONE (07:48)
[2024-08-20] MEDS: ceFAZolin SODIUM 1 GM VIAL IVPB ONE (08:14)
[2024-08-20] MEDS: LIDOCAINE HCL 1%, 10 MG/ML (20ML VIAL) INF ONE (08:22)
[2024-08-20] MEDS ORDERED: ONDANSETRON 4 MG/2 ML VIAL IVPUSH PRN (08:31)
[2024-08-20] MEDS ORDERED: ACETAMINOPHEN 500 MG TABLET (FP) PO ONE (08:31)
[2024-08-20] MEDS ORDERED: oxyCODONE HCL 5 MG TABLET PO PRN (08:31)
[2024-08-20] MEDS ORDERED: PROTAMINE SULFATE 50 MG/5 ML VIAL ONE (09:57)
[2024-08-20] MEDS: ASPIRIN 81 MG CHEWABLE TABLETS PO ONE (10:38)
[2024-08-20 11:51] VITALS: RESP 18
[2024-08-20 12:11] VITALS: BP 149/56; PULSE 64; TEMP 97.8
== END 2024-08-20 12:12 | disposition home or self-care (01) ==
LOC: JASU-SURG 03:46
PROVIDERS: ATTEND Surgery
PROC: X2K New Technology, Cardiovascular System, Bypass (ICD-10-PCS; principal; 2024-08-20 08:00)
DX: I70.211 Atherosclerosis of native arteries of extremities with intermittent claudication, right leg (principal)
CPT/HCPCS: 76000-TC-FY; 94760; C1760; C1769; C1876; J1644